=== PATIENT | female | born 1960 | race American Indian/Alaskan Native ===

== ENCOUNTER 2017-10-25 08:20 | Day surgery (SDC) | payer MEDICARE ==
[~2017-10-25 08:20] MED LIST: ANCEF/STERILE WATER 2 GM/20 ML 2 GM/20 ML SYRINGE IV NR; NACL 0.9% 1000 ML 1,000 ML IV SCH
[2017-10-25 09:58] LABS: Calcium 9.3 mg/dL (8.4-10.2)
[2017-10-25 10:25] LABS: INR 1.16 (0.87-1.13)
[2017-10-25 10:26] LABS: Partial Thromboplastin Time 27.2 Sec. (24.2-36.6)
[2017-10-25] MEDS ORDERED: HEPARIN/NS 5000 UNIT/500ML(CATH LAB) 500 ML IR ONE (11:56)
[2017-10-25] MEDS ORDERED: HEPARIN 10,000 UNITS/10 ML ONE (11:57)
[2017-10-25] MEDS ORDERED: XYLOCAINE 2% INFILTRATI ONE (11:57)
[2017-10-25] MEDS ORDERED: NACL 0.9% 100 ML ONE (11:58)
[2017-10-25] MEDS ORDERED: ANCEF/STERILE WATER 2 GM/20 ML 2 GM/20 ML SYRINGE IV ONE (11:58)
[2017-10-25] MEDS ORDERED: VERSED ONE (11:58)
[2017-10-25] MEDS: SUBLIMAZE ONE ×2 (12:06→12:19)
--- NOTE | 2017-10-25 12:50 | Operative Report ---
Operative Report Operative Report: EXAM: 1. Fluoroscopic guided exchange of a right internal jugular tunneled cuffed hemodialysis catheter. 2. Superior venacava venography and right innominate venography 3. Angioplasty with a 12 mm angioplasty balloon of the right innominate vein and SVC DATE: 10/25/17 INDICATION: 57-year-old female with end-stage renal disease and PermCath malfunction MEDICATIONS: Please see nursing report for full details. PACKER DRIED BEEF: SILVANO CARNES MD DEVICES: 23 cm tip to cuff 15 Fr dual lumen hemodialysis catheter ; existing catheter was a 19 tip to cuff dual lumen hemodialysis catheter CONTRAST: 10 mL's of nonionic contrast PROCEDURE: The risks, benefits, and alternatives were discussed and informed consent was obtained. The patient was transported to the angiography suite in satisfactory/ stable condition and was transported onto the angiography table. The patient was prepped and draped in a sterile fashion. The existing PermCath was prepped and draped in a sterile fashion. Heparin was removed from the lumens and then saline was used to flush the lumens. 0.035 inch stiff angled Glidewire was advanced through one of the lumen of the existing PermCath. Lidocaine was used to anesthetize the existing PermCath dermatotomy. Using a hemostat, blunt dissection was used to free the existing cuff. The catheter was partially retracted. Digital subtraction venography was performed through the other lumen. Over the 0.035 inch wire, the existing PermCath was removed. Wires were cleaned with ChloraPrep. 7 Guamanian sheath was advanced over the wire. 12 mm x 6 cm angioplasty balloon was advanced over the wire and used to perform angioplasty of the SVC and right innominate vein. The balloon was removed. Digital subtraction angiography was performed to the sheath. A second 0.035 inch stiff angled Glidewire was passed into the IVC. The sheath was removed. Wires were cleaned again with ChloraPrep. A new PermCath was advanced over the wire and position centrally under fluoroscopic guidance. Wires were removed and the PermCath was tested which demonstrated excellent flow. 2-0 Ethilon suture was used to secure the catheter at the dermatotomy. The catheter was charged with heparin 1000 units per mL of space. Sterile dressing and Biopatch applied. The patient was transferred from the angiography suite back to the floor in stable condition. FINDINGS: 1. Excellent flow was obtained through the dialysis catheter with 20 mL syringes. 2. The new catheter tip is in the right atrium. 3. 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 Angioplasty was performed of the right innominate vein and superior vena cava with a 12 mm x 60 mm angioplasty balloon. After angioplasty, there is noted residual narrowing of the right innominate vein or SVC. Prompt flow enters the right atrium. IMPRESSION: 1. Successful fluoroscopic guided replacement of a right internal jugular tunneled cuffed hemodialysis catheter. 2. Successful angioplasty of the right innominate vein and SVC with a 12 mm x 60 mm angioplasty balloon.
--- NOTE | 2017-10-25 12:50 | Short Stay Summary ---
Short Stay Documentation Date of service: 10/25/17 Narrative H&P: 57 year old female with ESRD who was previously on PD now on HD with malfunctioning right IJ permcath. Plans on transitioning back to PD. - History Principal diagnosis: Permcath malfunction Past Medical History: dialysis - Allergies and Medications Current Medications: Allergies No Known Allergies Allergy (Unverified 10/25/17 08:20) Home Medications Medication Instructions Recorded Confirmed Last Taken Type ALBUTEROL NEB's [Proventil] 2.5 mg IH TID PRN 10/25/17 10/25/17 2 Weeks Ago History ~10/11/17 Budesonide/Formoterol Fumarate 2 puff IH PRN PRN 10/25/17 10/25/17 10/23/17 History [Symbicort 160-4.5 Mcg Inhaler] Carvedilol [Coreg] 12.5 mg PO BID 10/25/17 10/25/17 10/25/17 07:15 History Furosemide [Lasix] 80 mg PO BID 10/25/17 10/25/17 10/24/17 History amLODIPine [Norvasc] 5 mg PO QDAY 10/25/17 10/25/17 10/25/17 07:15 History Active Medications Cefazolin Sodium (Ancef/Sterile Water 2 Gm/20 Ml) 2 gm in 20 mls @ 80 mls/hr IV PREOP NR PRN Reason: Protocol Stop: 10/25/17 23:59 Sodium Chloride (Nacl 0.9% 1000 Ml) 1,000 mls @ 42 mls/hr IV DIRECT JERAMY - Physical exam General appearance: no acute distress Lungs: Normal air movement Gastrointestinal: normal - Brief post op/procedure progress note Date of procedure: 10/25/17 Pre-op diagnosis: Permcath malfunction Post-op diagnosis: same Procedure: Permcath exchange, venography, venoplasty Anesthesia: local (w/ conscious sedation) Surgeon: SILVANO CARNES Estimated blood loss: minimal Condition: stable - Hospital course Hospital course: Ready for discharge in 1 hr - Disposition Condition at discharge: Stable Disposition: DC-01 TO HOME OR SELFCARE - Discharge Diagnoses (1) Complications, dialysis, catheter, mechanical Status: Acute Short Stay Discharge Plan Activity: advance as tolerated Weight Bearing Status: Weight Bear as Tolerated Diet: renal Wound: keep clean and dry Follow up with: MANDO RUIZ MD [Primary Care Provider] - 7 Days
[2017-10-25 13:39] VITALS: BP 105/70
== END 2017-10-25 13:30 | disposition home or self-care (01) ==
LOC: CATHLABREC 08:20
PROVIDERS: ATTEND Radiology Diagnostic Radiology
DX: T82.41XA Breakdown (mechanical) of vascular dialysis catheter, initial encounter (principal); N18.6 End stage renal disease; Y83.1 Surgical operation with implant of artificial internal device as the cause of abnormal reaction of the patient, or of later complication, without mention of misadventure at the time of the procedure; Z79.899 Other long term (current) drug therapy
CPT/HCPCS: 36415; 36558; 37248; 77001; 80048; 85610; 85730; C1725; C1750; C1769; C1894; J0690; J1644; J2250; J3010; Q9967

== ENCOUNTER 2018-05-08 09:42 | Day surgery (SDC) | payer MEDICARE ==
[2018-05-08] MEDS ORDERED: VERSED ONE (12:32)
[2018-05-08] MEDS ORDERED: HEPARIN/NS 5000 UNIT/500ML(CATH LAB) 0 ML IR ONE (12:32)
[2018-05-08] MEDS ORDERED: HEPARIN 10,000 UNITS/10 ML ONE ×2 (12:32→12:46)
[2018-05-08] MEDS ORDERED: SUBLIMAZE ONE (12:32)
[2018-05-08] MEDS ORDERED: XYLOCAINE 2% INFILTRATI ONE (12:33)
[2018-05-08] MEDS ORDERED: ANCEF/STERILE WATER 2 GM/20 ML 2 GM/20 ML SYRINGE IV ONE (12:45)
[2018-05-08] MEDS ORDERED: XYLOCAINE 1%/ EPI 1:100,000 INFILTRATI ONE (12:45)
[2018-05-08] MEDS ORDERED: HEPARIN/NS 5000 UNIT/500ML(CATH LAB) 500 ML IR ONE (12:45)
[2018-05-08] MEDS ORDERED: NACL 0.9% 250ML 250 ML ONE (12:46)
[2018-05-08] MEDS ORDERED: ZOFRAN ONE (13:04)
--- NOTE | 2018-05-08 13:43 | Post Operative Note ---
Pre-op diagnosis: malfunction, hemodialysis catheter Post-op diagnosis: other (same with fibrin sheath and SVC stenosis) Findings: cathete clogged with fibrin sheath- tx with angioplasty and new cth Procedure: complete exchange of permcath same venous access site, fluoro, angioplasty of superior vena cava stenosis Anesthesia: local, other Surgeon: NAT RAMIREZ Estimated blood loss: minimal Pathology: none Condition: stable Disposition: same day
--- NOTE | 2018-05-08 13:47 | Short Stay Summary ---
Short Stay Documentation Date of service: 05/08/18 Narrative H&P: admitted to laborer driver for outpatient exchange of malfunctioning permacath - History H&P: obtained from office - Allergies and Medications Current Medications: Allergies No Known Allergies Allergy (Verified 05/08/18 10:01) Home Medications Medication Instructions Recorded Confirmed Last Taken Type ALBUTEROL NEB's [Proventil] 2.5 mg IH TID PRN 10/25/17 05/08/18 05/07/18 History 1 Budesonide/Formoterol Fumarate 2 puff IH PRN PRN 10/25/17 05/08/18 05/07/18 History [Symbicort 160-4.5 Mcg Inhaler] 2 Carvedilol [Coreg] 12.5 mg PO BID 10/25/17 05/08/18 05/07/18 History 12.5mg Furosemide [Lasix] 80 mg PO BID 10/25/17 05/08/18 05/07/18 History 80mg amLODIPine [Norvasc] 5 mg PO QDAY 10/25/17 05/08/18 05/07/18 History 5mg Active Medications Cefazolin Sodium (Ancef/Sterile Water 2 Gm/20 Ml) 2 gm in 20 mls @ 80 mls/hr IV PREOP NR; Protocol Stop: 05/08/18 23:59 Sodium Chloride (Nacl 0.9% 1000 Ml) 1,000 mls @ 42 mls/hr IV DIRECT JERAMY - Brief post op/procedure progress note Date of procedure: 05/08/18 Pre-op diagnosis: malfunction of permacath Post-op diagnosis: same Procedure: complete exhange of permacath, same venous access, angioplasty of fibrin sheath and stricture SVC. Anesthesia: local Findings: fibrin sheath removed, cath in good position Surgeon: NAT RAMIREZ Estimated blood loss: minimal Pathology: none Condition: stable - Hospital course Hospital course: benign - Disposition Condition at discharge: Stable Disposition: DC-01 TO HOME OR SELFCARE Short Stay Discharge Plan Activity: advance as tolerated Weight Bearing Status: Weight Bear as Tolerated Diet: renal Wound: keep clean and dry Special Instructions: no heavy lifting Follow up with: MANDO RUIZ MD [Primary Care Provider] - 7 Days
[2018-05-08 14:19] VITALS: BP 116/71
--- NOTE | 2018-05-09 20:38 | Operative Report ---
PREOPERATIVE DIAGNOSES: Malfunctioning hemodialysis catheter, end-stage renal disease, on dialysis. POSTOPERATIVE DIAGNOSES: Malfunctioning hemodialysis catheter, end-stage renal disease, on dialysis, with a fibrin sheath and superior vena cava stenosis. PROCEDURES: 1. Complete exchange of Perm-A-Cath, same venous access site. 2. Fluoroscopic supervision and interpretation. 3. Percutaneous angioplasty of the superior vena cava. SURGEON: Aramis Richards MD ANESTHESIA: Local. ESTIMATED BLOOD LOSS: Negligible. PATIENT CONDITION: Stable. COMPLICATIONS: None. INSTRUMENT COUNTS: Correct. SPECIMENS: Old Perm-A-Cath with adherent fibrin sheath discarded. DESCRIPTION OF PROCEDURE: The patient in the supine position. The right anterior neck and chest were prepped and draped using standard sterile technique. The patient did not want any sedation as she had planned on driving herself home later today. We thus used only local analgesia and I anesthetized the exit site of the Perm-A-Cath heavily. Using a combination of blunt and sharp dissection, the cuff was freed from the subcutaneous tissue and the catheter was retracted slightly distally. I then cannulated the catheter with a twin stiff Glidewires and under fluoroscopic guidance, advanced them through the catheter and into the inferior vena cava. One of the wires exited a sideport rather than the end of the catheter. I then extracted the catheter and held counter pressure on the neck to prevent bleeding leaving the stiff Glidewires in place. There was dense fibrin sheath clogging up most of the holes of the distal catheter. At this point, I felt that the patient had a residual fibrin sheath and stenosis. I then advanced the 6-Gabonese introducer over one of the wires and then advanced a 10 x 40 balloon into the superior vena cava and insufflated it. There was a modest waste, which gave away. I then moved the balloon proximally and distally from in the superior vena cava all the way into the distal atrium. I then withdrew it thus breaking up any fibrin sheath. The balloon was then deflated and removed as was the sheath. I then advanced a 19 cm Perm-A-Cath over the guidewires and the seated that in the right atrium. The guidewires were then removed (this was a GlidePath catheter.) I then easily aspirated, flushed, and primed each limb with 1000 units per mL of heparin. Sterile caps were applied. The catheter was then anchored to the skin using a nylon suture. A pursestring chromic suture was used to tighten the exit site. Fluoroscopic confirmation of good positioning was obtained. The patient was then returned to the supine position and then to recovery area in stable condition and having tolerated the procedure well. Sponge and needle counts were correct. JOB# [id number] GRIFFIN/JAY
== END 2018-05-08 14:36 | disposition home or self-care (01) ==
LOC: CATHLABREC 09:42
PROVIDERS: ATTEND Radiology Diagnostic Radiology
DX: T82.49XA Other complication of vascular dialysis catheter, initial encounter (principal); I12.0 Hypertensive chronic kidney disease with stage 5 chronic kidney disease or end stage renal disease; N18.6 End stage renal disease; J44.9 Chronic obstructive pulmonary disease, unspecified; M19.90 Unspecified osteoarthritis, unspecified site; Z79.899 Other long term (current) drug therapy; Z90.710 Acquired absence of both cervix and uterus; Z87.891 Personal history of nicotine dependence; Z86.718 Personal history of other venous thrombosis and embolism; Z95.810 Presence of automatic (implantable) cardiac defibrillator; Z98.890 Other specified postprocedural states; Y83.8 Other surgical procedures as the cause of abnormal reaction of the patient, or of later complication, without mention of misadventure at the time of the procedure
CPT/HCPCS: 36415; 36581; 37248; 77001; 84132; C1725; C1750; C1769; J0690; J1644; J2405; J7050; J2250; J3010

== ENCOUNTER 2018-10-31 09:40 | Day surgery (SDC) | payer MEDICARE ==
[2018-10-31 11:43] LABS: INR 2.83 (0.87-1.13)
[2018-10-31 11:44] LABS: Partial Thromboplastin Time 41.9 Sec. (24.2-36.6)
[2018-10-31] MEDS ORDERED: NACL 0.9% 500 ML 500 ML IV SCH (12:00)
[2018-10-31] MEDS ORDERED: HEPARIN/NS 5000 UNIT/500ML(CATH LAB) 1,000 ML IR ONE (13:30)
[2018-10-31] MEDS ORDERED: NACL 0.9% 250ML 250 ML ONE (13:30)
[2018-10-31] MEDS ORDERED: ANCEF/STERILE WATER 2 GM/20 ML 2 GM/20 ML SYRINGE IV ONE (13:31)
[2018-10-31] MEDS: SUBLIMAZE ONE ×2 (14:24→14:26)
[2018-10-31] MEDS: XYLOCAINE 2% INFILTRATI ONE ×2 (14:24→14:26)
[2018-10-31] MEDS: VERSED ONE ×2 (14:24→14:26)
[2018-10-31] MEDS: HEPARIN 10,000 UNITS/10 ML ONE ×2 (14:30→14:31)
--- NOTE | 2018-10-31 14:50 | Operative Report ---
Operative Report Operative Report: Operative note: Date: 10/31/2018 Preoperative diagnosis: Malfunctioning dialysis catheter on the right IJ Postoperative diagnosis: Same. Operation: Right PermCath exchange Surgeon: Melva Flores. Asst.: None Anesthesia: local with moderate sedation. EBL: Minimal Findings: PermCath positioned at the SVC atrial junction Indications:58-year-old female with PermCath malfunction came for procedure. She was explained risks, benefits and alternatives of procedure and chose to proceed and signed informed consent Operative details: Patient was brought to labor relations officer and positioned in the supine position with right upper chest PermCath prepped and draped in sterile fashion. A timeout performed and all team members in the agreement, we will Glidewire were inserted and advanced under fluoroscopic guidance through the venous and arterial ports of PermCath and advanced to inferior vena cava. Care was infiltrated with lidocaine around the PermCath site. Small incision was made just at the PermCath skin insertion point and dilated with hemostat, dissecting around cuff. Old permacath was removed and new PermCath 19 cm was advanced over 2 Glidewire and inserted through the previous orifice into the proximal SVC. Wires were removed and ports were flushed with saline and checked for good blood flow. Cath ports were locked with heparin 1.5 mL in each. Catheter was sutured in place and sterile dressing was applied. Patient tolerated procedure well and was transferred to PACU in stable condition.
--- NOTE | 2018-10-31 14:52 | Short Stay Summary ---
Short Stay Documentation Date of service: 10/31/18 - History H&P: dictated (documented in chart) - Allergies and Medications Current Medications: Allergies No Known Allergies Allergy (Verified 05/08/18 10:01) Home Medications Medication Instructions Recorded Confirmed Last Taken Type ALBUTEROL NEB's [Proventil 0.083% 2.5 mg IH TID PRN 10/25/17 10/31/18 09/05/18 History NEBS] unit dose Budesonide/Formoterol Fumarate 2 puff IH PRN PRN 10/25/17 10/31/18 09/05/18 History [Symbicort 160-4.5 Mcg Inhaler] 2 pufds Carvedilol [Coreg] 12.5 mg PO BID 10/25/17 10/31/18 10/30/18 History 12.5mg Furosemide [Lasix] 80 mg PO BID 10/25/17 10/31/18 10/30/18 History 80mg amLODIPine [Norvasc] 5 mg PO QDAY 10/25/17 10/31/18 10/30/18 History 5mg Warfarin [Coumadin] 5 mg PO DAILY 10/31/18 10/31/18 10/30/18 History 5mg Active Medications Sodium Chloride (Nacl 0.9% 500 Ml) 500 mls @ 50 mls/hr IV DIRECT JERAMY Last Admin: 10/31/18 14:15 Dose: 100 mls Documented by: - Brief post op/procedure progress note Date of procedure: 10/31/18 Pre-op diagnosis: nonfunctioning PermCath Post-op diagnosis: same Procedure: Right IJ PermCath exchange Anesthesia: MAC Findings: PermCath position and the SVC atrial junction Surgeon: KAREN DUNCAN Estimated blood loss: minimal Condition: stable - Disposition Condition at discharge: Fair Disposition: DC-01 TO HOME OR SELFCARE Short Stay Discharge Plan Diet: renal Wound: keep clean and dry Follow up with: MANDO RUIZ MD [Primary Care Provider] - 7 Days
[2018-10-31 16:24] VITALS: BP 122/84
== END 2018-10-31 17:22 | disposition home or self-care (01) ==
LOC: CATHLABREC 09:40
PROVIDERS: ATTEND Surgery Vascular Surgery
DX: T82.590A Other mechanical complication of surgically created arteriovenous fistula, initial encounter (principal); I12.0 Hypertensive chronic kidney disease with stage 5 chronic kidney disease or end stage renal disease; N18.6 End stage renal disease; J44.9 Chronic obstructive pulmonary disease, unspecified; F17.210 Nicotine dependence, cigarettes, uncomplicated; M17.0 Bilateral primary osteoarthritis of knee; Z98.890 Other specified postprocedural states; Z79.01 Long term (current) use of anticoagulants; Z79.899 Other long term (current) drug therapy; Z90.710 Acquired absence of both cervix and uterus; Z99.2 Dependence on renal dialysis; Z86.718 Personal history of other venous thrombosis and embolism; Y83.8 Other surgical procedures as the cause of abnormal reaction of the patient, or of later complication, without mention of misadventure at the time of the procedure; Y92.89 Other specified places as the place of occurrence of the external cause
CPT/HCPCS: 36415; 36581; 77001; 84132; 85610; 85730; 99156; 99157; C1750; C1769; J0690; J1644; J2250; J3010; J7040; J7050